=== PATIENT | male | born 1925 | race Caucasian/White ===

== ENCOUNTER 2017-01-01 06:01 | Emergency (ER) | payer OTHER ==
--- NOTE | 2017-01-01 06:04 | PDOC ---
History of Present Illness - General Chief Complaint: Injury Stated Complaint: R ARM INJURY Time Seen by Provider: 01/01/17 06:04 - History of Present Illness Initial Comments: This 89-year-old man with a history of myeloproliferative disorder presents with a history of injury to the skin of his right elbow: The patient fell, striking his right elbow and scraping the area yesterday. Patient denies hitting his head or neck. There was no loss of consciousness. He denies pain or swelling in the elbow. He did sustain a skin tear of the area around the olecranon process which was repaired by his with [id number] skin adhesive. Patient did well overnight but this morning his daughter noted bleeding on the bandage that was applied over the wound. Patient denies pain in the elbow or any other area. Past History - Past Medical History Allergies/Adverse Reactions: Allergies Allergy/AdvReac Type Severity Reaction Status Date / Time Penicillins Allergy Unknown Verified 02/22/14 09:37 Home Medications: Ambulatory Orders Aspirin Coated [Ecotrin -] 81 mg PO DAILY 08/11/13 Levothyroxine [Synthroid -] 50 mcg PO DAILY 08/11/13 Lutein 20 mg PO DAILY 08/11/13 Multivitamin [Multivitamins] 1 each PO DAILY 08/11/13 Cholecalciferol (Vitamin D3) [Vitamin D-400] 400 unit PO AM 02/22/14 Primidone 250 mg PO HS 02/22/14 Propranolol HCl [Inderal Xl] 120 mg PO AM 02/22/14 Vit A/Vit C/Vit E/Zinc/Copper [Preservision Areds Softgel] 1 each PO BID Thyroid Disease: Yes (HYPOTHYROID) - Psycho/Social/Smoking Cessation Hx Anxiety: No Suicidal Ideation: No Smoking History: Never smoked Number of Cigarettes Smoked Daily: 0 Hx Alcohol Use: No Drug/Substance Use Hx: No Substance Use Type: None Hx Substance Use Treatment: No Review of Systems - Review of Systems Able to Perform ROS?: Yes Comments:: 12 point review of systems is negative except for what is noted in the history of present illness *Physical Exam - Physical Exam Comments: GENERAL: Awake, alert, and fully oriented, in no acute distress HEAD: No signs of trauma EYES: PERRLA, EOMI, sclera anicteric, conjunctiva clear ENT: Auricles normal inspection, hearing grossly normal, nares patent, oropharynx clear without exudates. Moist mucosa NECK: Normal ROM, supple, no lymphadenopathy, JVD, or masses LUNGS: Breath sounds clear and equal. No wheezes, and no crackles HEART: Regular rate and rhythm, normal S1 and S2, no murmurs, rubs or gallops ABDOMEN: Soft, nontender, normoactive bowel sounds. No guarding, no rebound. No masses EXTREMITIES: Right upper extremityno tenderness/edema/deformity of elbow or any other aspect of arm Remainder of the extremity exam is also normal NEUROLOGICAL: Cranial nerves II through XII grossly intact. Normal speech, normal gait SKIN: 3 cm by 2 cm skin tear right olecranon process; no significant bleeding except for tiny oozing at one corner. No other lesions evident Procedures - Laceration/Wound Repair Right Lateral Arm Wound Length: 2.6 to 5.0 cm Wound Repaired With: Dermabond Progress: Gauze dressing gently removed from right elbow wound. Tiny area of oozing present but no other disruption of skin adhesive that was placed last night. Area of oozing sealed using Dermabond. Xeroform dressing followed by sterile gauze dressing applied. *DC/Admit/Observation/Transfer Diagnosis at time of Disposition: Skin tear of elbow without complication Qualifiers: Encounter type: initial encounter Laterality: right Qualified Code(s): S51.011A - Laceration without foreign body of right elbow, initial encounter - Discharge Dispostion Disposition: HOME Condition at time of disposition: Stable - Referrals Referrals: Fidel Gaffney MD [Primary Care Provider] - - Patient Instructions Printed Discharge Instructions: DI for Laceration Repair With Dermabond Additional Instructions: Keep original bandage in place for the next 4 days After that, protective dressing (Band-Aid) as needed Return to ER if you have severe pain or bleeding Follow-up with Dr. Gaffney as scheduled
[2017-01-01 06:07] VITALS: BP 134/56; PULSE 65; TEMP 97.8; BMI 29.2
[2017-01-01] MEDS: DIPHTH,PERTUSS(ACELL),TET 0.5 ML DISP.SYRIN IM ONE (06:37)
== END 2017-01-01 06:29 | disposition home or self-care (01) ==
LOC: FER 06:01
PROC: 0HQDXZZ Repair Right Lower Arm Skin, External Approach (ICD-10-PCS; principal; 2017-01-01)
PROC: 3E0234Z Introduction of Serum, Toxoid and Vaccine into Muscle, Percutaneous Approach (ICD-10-PCS; 2017-01-01)
DX: S51.011A Laceration without foreign body of right elbow, initial encounter (principal); W22.8XXA Striking against or struck by other objects, initial encounter; Y93.89 Activity, other specified; Y92.012 Bathroom of single-family (private) house as the place of occurrence of the external cause; E03.9 Hypothyroidism, unspecified
CPT/HCPCS: 90715; 99283-25